=== PATIENT | female | born 1985 | race Hispanic/Latino ===

== ENCOUNTER 2021-05-12 09:09 | Day surgery (SDC) | payer OTHER ==
[2021-05-12 09:46] LABS: Specific Gravity 1.025 (1.005-1.030)
[2021-05-12 09:47] LABS: Absolute Lymphocytes (CBC) 1.8 K/uL (0.7-4.9); Basophils % 0.9 % (0-1.3); Hematocrit 40.8 % (36.0-45.0); Lymphocytes % 25.5 % (15.3-44.8); MPV 7.4 fL (7.6-11.3); RBC Red Blood Cell Count 4.03 M/uL (3.86-4.86)
[2021-05-12] MEDS ORDERED: Ringers Lactate 1,000 ML IV ONE (09:59)
[2021-05-12 10:05] LABS: BUN Blood Urea Nitrogen 14 mg/dL (7-18); Bicarbonate 25 mmol/L (21-32); Glucose Level 88 mg/dL (74-106); Potassium 3.8 mmol/L (3.5-5.1); Sodium Level 140 mmol/L (136-145)
[2021-05-12] MEDS ORDERED: CEFAZOLIN/SWI 1gm 1 GM/10 ML SYR ONE (10:17)
[2021-05-12] MEDS ORDERED: ACETAMINOPHEN 500 MG TAB ONE (10:53)
[2021-05-12] MEDS ORDERED: CELECOXIB 100 MG CAPSULE ONE (10:53)
[2021-05-12] MEDS ORDERED: BUPIVACAINE 0.5% PF 10 ML VIAL ONE (11:38)
[2021-05-12] MEDS ORDERED: propofoL 200 MG/20 ML VIAL IV ONE (11:54)
[2021-05-12] MEDS ORDERED: LIDOCAINE 2% MPF 5 ML VIAL ONE (11:55)
[2021-05-12] MEDS ORDERED: FENTANYL CITR 100 MCG/2 ML ONE (11:55)
[2021-05-12] MEDS ORDERED: MIDAZOLAM HCL 2 MG/2 ML INJ ONE (11:56)
[2021-05-12] MEDS ORDERED: ONDANSETRON 4 MG/2 ML VIAL ONE (11:57)
[2021-05-12] MEDS ORDERED: dexAMETHasone 10 MG/ML VIAL ONE (12:10)
[2021-05-12] MEDS ORDERED: KETOROLAC 30 MG/ML INJ ONE (12:30)
[2021-05-12 12:36] VITALS: O2SAT 100
--- NOTE | 2021-05-12 12:36 | P.BOP ---
Preoperative diagnosis: infected tender left upper arm subQ mass 2.5 2.5 cm Postoperative diagnosis: same Primary procedure: Excisional biopsy infected tender left upper arm subQ mass 2.5 2.5 cm Estimated blood loss: <10cc Specimen: mass Findings: purulent fluid with hard mass Anesthesia: General Complications: None Transferred to: Recovery Room Condition: Good
--- NOTE | 2021-05-12 13:17 | OP ---
Date of Procedure: 05/12/2021 Surgeon: Kevon Ramirez MD Preoperative Diagnosis: Infected tender left upper arm subcutaneous mass, 2.5 x 2.5 cm. Postoperative Diagnosis: Infected tender left upper arm subcutaneous mass, 2.5 x 2.5 cm. Procedure: Excisional biopsy of infected tender left upper arm subcutaneous mass, 2.5 x 2.5 cm. Estimated Blood Loss: Less than 10 mL. Specimen: Mass. Findings: The patient has a purulent discharge coming with the mass and abscess associated with it. Anesthesia: General plus local. Indication: This is the case of a 35-year-old patient, came with a tender mass in the left upper arm . That is unknown. Imaging was reviewed. She does not remember any trauma in that area or any prev ious masses. It is read, it is hard to feel. Antibiotics were given with no improvement. The patie nt wanted that excised. Benefits, alteratives, and risks of excision were fully explained, which inc lude, but not limited to infection, bleeding, damage to adjacent structures, anesthesia complication, recurrence, SD, and even . She also understands she may require wound care. She understood, s igned a consent. Obviously, the patient preferred to have the area closed. We will see what we can do depends on the findings. Procedure In Detail: The area was marked by me and the patient in the holding room. The patient was brought to the operating room, placed in supine position. Anesthesia was done without evidence of c omplication. The left upper arm was prepped and draped in usual sterile fashion. The area was delin eated previously with a marking pen and we injected local anesthetic over that area followed by a wed ge incision in the skin to include the mass since it attached also to the part of the skin. Once we removed the mass, it is soft tissue area mass, but it is a hard in nature and has what looked like pu rulent abscess associated with it. The veins were nearby, but no bone or tendon exposed. Mass was c ompletely excised. The area was cultured. The area was irrigated profusely. In an attempt to tryin g to approximate this, we used 3-0 chromic in the subcutaneous tissue and then 3-0 nylon. We will se e in the next few days. If infection does not improve, then we may have to that heal by secondary in tention. She understands preoperatively. Sponge count and instrument counts correct. The patient w as sent to recovery in stable condition. HM/MODL Voice ID: [id number] Report ID: [id number]
--- NOTE | 2021-05-12 13:17 | DS ---
Diagnosis: Infected left upper arm subcutaneous mass. Procedure: Excisional biopsy of infected left upper arm subcutaneous mass. Disposition: Home. Activity: As tolerated. No heavy lifting. Plan: Follow up in my office in 1 week. Call for appointment at [phone]. Remove outer dressing to hill and then clean with soap and water and then put triple antibiotics on it. MIKKI/CARLY Voice ID: [id number] Report ID: [id number]
[2021-05-12] MEDS ORDERED: CODEINE 30MG/APAP 300MG TAB ONE (14:04)
[2021-05-12 14:26] VITALS: BP 123/78; TEMP 96.8
== END 2021-05-12 14:15 | disposition home or self-care (01) ==
LOC: OR 09:09
PROVIDERS: ATTEND Surgery
PROC: 0JBF0ZZ Excision of Left Upper Arm Subcutaneous Tissue and Fascia, Open Approach (ICD-10-PCS; principal; 2021-05-12 10:45)
DX: R22.32 Localized swelling, mass and lump, left upper limb (principal); I96 Gangrene, not elsewhere classified
CPT/HCPCS: 87070; 85025; 80048; 36415; 87205; 88312; 81025; 88305; 87075; 11403; U0003; J2704; J2250; J3010; J1100; J0690; J7120; J2405; 88304